=== PATIENT | male | born 1995 | race Caucasian/White ===

== ENCOUNTER 2025-02-24 12:28 | Emergency (ER) | payer OTHER ==
[~2025-02-24] VITALS: Ht 167.6 cm; Wt 77.1 kg
[2025-02-24 12:31] VITALS: BP 136/79; O2SAT 98
[2025-02-24 13:09] LABS: *BILIRUBIN,URIN NEGATIVE (NEGATIVE); *BLOOD, URINE NEGATIVE (NEGATIVE); *CLARITY,URINE CLEAR (CLEAR); *COLOR,URINE YELLOW (YELLOW); *KETONES,URINE NEGATIVE (NEGATIVE); *PROTEIN,URINE TRACE (NEGATIVE); *UROBILINOGEN,URINE 0.2 E.U./dl (NORMAL); LEUKOCYTE ESTERASE ,URINE NEGATIVE (NEGATIVE); NITRITE, URINE NEGATIVE (NEGATIVE); UGLUCOSE NEGATIVE (NEGATIVE)
[2025-02-24 13:16] LABS: SQUAMOUS EPITHELIAL CELL,UR FEW /HPF (NONE SEEN)
[2025-02-24] MEDS ORDERED: IBUP-1955 PO (14:24)
[2025-02-24] MEDS ORDERED: TAMS-3 PO (14:24)
== END 2025-02-24 14:50 | disposition home or self-care (01) ==
LOC: ER 12:28
DX: R10.2 Pelvic and perineal pain (principal); R30.0 Dysuria
CPT/HCPCS: A4606; A4663